=== PATIENT | female | born 2000 | race Native Hawaiian/Other Pacific Islander ===

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

== ENCOUNTER 2022-08-08 19:35 | Emergency (ER) | payer OTHER | END 2022-08-08 21:59 | disposition home or self-care (01) | LOC: ED 19:35 | DX: S60.221A Contusion of right hand, initial encounter (principal); W22.8XXA Striking against or struck by other objects, initial encounter; F17.290 Nicotine dependence, other tobacco product, uncomplicated; F12.90 Cannabis use, unspecified, uncomplicated | CPT/HCPCS: 96372; 99283; J1885 ==

== ENCOUNTER 2022-09-10 09:49 | Emergency (ER) | payer OTHER ==
[~2022-09-10] VITALS: Ht 162.6 cm; Wt 60.8 kg
[2022-09-10 09:50] VITALS: BP 109/60; TEMP 98.5
== END 2022-09-10 10:58 | disposition home or self-care (01) ==
LOC: ED 09:49
DX: N39.0 Urinary tract infection, site not specified (principal); Z34.90 Encounter for supervision of normal pregnancy, unspecified, unspecified trimester
CPT/HCPCS: 81000; 81025; 87086; 87088; 99283